=== PATIENT | female | born 1945 | race Two or more races ===

== ENCOUNTER → 2024-07-31 | Outpatient (CLI) | payer BC ==
[2024-07-31 09:25] LABS: Urine Bacteria None Seen /hpf (None Seen)
[2024-07-31 10:01] LABS: Basophils # (auto) 0 10 ^3/uL (0-0.2); Basophils % (auto) 0.8 % (0.0-2.0); Eosinophils # (auto) 0.1 10 ^3/uL (0-0.8); Eosinophils % (auto) 2.1 % (0.0-7.0); Hematocrit 42.4 % (36.0-46.0); Lymphocytes # (auto) 1.5 10 ^3/uL (0.4-5.4); Lymphocytes % (auto) 34.5 % (10.0-50.0); Mean Corpuscular Hemoglobin 29.6 pg (28.0-32.0); Mean Corpuscular Volume 89.9 fL (80.0-100.0); Monocytes # (auto) 0.4 10 ^3/uL (0-1.3); Monocytes % (auto) 8.5 % (0.0-12.0); Neutrophils # (auto) 2.3 10 ^3/uL (1.6-8.6); Neutrophils % (auto) 54.1 % (37.0-80.0); Platelet Count (auto) 177 10^3/uL (140-450); Red Blood Cells 4.72 10^6/uL (4.0-5.20); Red Cell Distribution Width 13.1 % (11.8-14.3); White Blood Cell 4.2 10^3/uL (4.4-10.8)
[2024-07-31 10:14] LABS: Urine Blood 1+ /uL (Negative); Urine Clarity Clear (Clear); Urine Color Light-Yellow (Yellow); Urine Mucus FEW (None Seen); Urine Protein, UAD Negative (Negative); Urine Specific Gravity 1.019 (1.001-1.035); Urine Squamous Epithelial Cell FEW /hpf (<5); Urine Urobilinogen Normal (Negative); Urine WBC 4 /HPF (0-5); Urine pH 6.5 (5.0-9.0)
[2024-07-31 10:35] LABS: Alanine Aminotransferase 19 U/L (7-40); Albumin 4.6 g/dL (3.2-4.8); Alkaline Phosphatase 63 U/L (46-116); Anion Gap 6 (5-15); Aspartate Aminotransferase 23 U/L (13-40); BUN/Creatinine Ratio 13.8 (10.0-20.0); Blood Urea Nitrogen 13 mg/dL (9-23); Carbon Dioxide 29 mmol/L (20-31); Chloride 106 mmol/L (98-107); Glucose 106 mg/dL (74-106); Sodium 141 mmol/L (136-145); Total Protein 7.5 g/dL (5.7-8.2); Triglycerides 57 mg/dL (< 150)
[2024-07-31 10:36] LABS: Bilirubin, Total 0.4 mg/dL (0.2-1.0); Calcium 10.4 mg/dL (8.7-10.4); Cholesterol 218 mg/dL (< 200); HDL Cholesterol 81 mg/dL (40-59); LDL Cholesterol 129 mg/dL (< 100)
[2024-07-31 12:15] LABS: Folate (Folic Acid) 18.21 ng/mL (>5.38)
== END | disposition home or self-care (01) ==
LOC: LAB 09:14
PROVIDERS: ATTEND Internal Medicine
DX: F03.90 Unspecified dementia, unspecified severity, without behavioral disturbance, psychotic disturbance, mood disturbance, and anxiety (principal); Z00.00 Encounter for general adult medical examination without abnormal findings
CPT/HCPCS: 36415; 80053; 80061; 81001; 82306; 82607; 82746; 83036; 84443; 85025; 86780

== ENCOUNTER 2024-11-27 11:29 | Outpatient (CLI) | payer BC | END 2024-11-27 17:00 | disposition home or self-care (01) | LOC: LAB 11:29 | PROVIDERS: ATTEND Internal Medicine | DX: E55.9 Vitamin D deficiency, unspecified (principal) | CPT/HCPCS: 82306 ==

== ENCOUNTER 2025-03-01 07:53 | Outpatient (CLI) | payer BC ==
[2025-03-01 08:57] LABS: Alanine Aminotransferase 12 U/L (7-40); Albumin 4.6 g/dL (3.2-4.8); Alkaline Phosphatase 57 U/L (46-116); Anion Gap 9 (5-15); BUN/Creatinine Ratio 12.2 (10.0-20.0); Blood Urea Nitrogen 12 mg/dL (9-23); Calcium 9.7 mg/dL (8.7-10.4); Carbon Dioxide 29 mmol/L (20-31); Chloride 105 mmol/L (98-107); Glucose 97 mg/dL (74-106); Potassium 4.6 mmol/L (3.5-5.1); Sodium 143 mmol/L (136-145); Total Protein 7.6 g/dL (5.7-8.2); Triglycerides 73 mg/dL (< 150)
[2025-03-01 08:58] LABS: Bilirubin, Total 0.5 mg/dL (0.2-1.0)
[2025-03-01 09:00] LABS: Cholesterol 208 mg/dL (< 200); HDL Cholesterol 68 mg/dL (40-59)
== END 2025-03-01 17:00 | disposition home or self-care (01) ==
LOC: LAB 07:53
PROVIDERS: ATTEND Internal Medicine
DX: I10 Essential (primary) hypertension (principal); E78.5 Hyperlipidemia, unspecified
CPT/HCPCS: 36415; 80053; 80061

== ENCOUNTER 2025-03-27 13:25 | Emergency (ER) | payer BC ==
[~2025-03-27] VITALS: Ht 167.6 cm; Wt 53.5 kg
[2025-03-27] MEDS: SODIUM CHLORIDE 0.9% 1,000 ML IV ONE (15:00)
--- NOTE | 2025-03-27 15:05 | ED.PDOC ---
HPI (NEURO) HPI Comments 79 y/o F, with PMHx of dementia is brought in by daughter for CC of weakness. Per patient's daughter, patient has been c/o weakness and being unable to ambulate sudden onset, this morning (03/27/25). Patient's daughter further reports, patients blood pressure was hypotensive at home reading at 95/61mmHg; patient's blood pressure upon arrival to the ED read at 111/77mmHg. Patient stating that she just felt a global weakness. No focal weakness on 1 side of body versus the other. No recent infectious symptoms. Patient denies any trauma, injury, fall, faintness, or dizziness. No other symptoms or modifying factors are present at this time. 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 Family History Family History: Unknown Social History Smoker: Non-Smoker Alcohol: Denies ETOH Use Drugs: Denies Drug Use Lives In: Home Constitutional: reports: weakness; denies: chills, diaphoresis, fatigue, fever, malaise, sweats, others EENTM: denies: blurred vision, double vision, ear bleeding, ear discharge, ear drainage, ear pain, ear ringing, eye pain, eye redness, hearing loss, mouth pain, mouth swelling, nasal discharge, nose bleeding, nose congestion, nose pain, photophobia, tearing, throat pain, throat swelling, voice changes, others Respiratory: denies: cough, hemoptysis, orthopnea, SOB at rest, shortness of breath, SOB with excertion, stridor, wheezing, others Cardiovascular: denies: chest pain, dizzy spells, diaphoresis, Dyspnea on exertion, edema, irregular heart beat, left arm pain, lightheadedness, palpitations, PND, syncope, others Gastrointestinal: denies: abdomen distended, abdominal pain, blood streaked bowels, constipated, diarrhea, dysphagia, difficulty swallowing, hematemesis, melena, nausea, poor appetite, poor fluid intake, rectal bleeding, rectal pain, vomiting, others Genitourinary: denies: abnormal vagina bleeding, burning, dyspareunia, dysuria, flank pain, frequency, hematuria, incontinence, pain, , vagina discharge, urgency, others Neurological: denies: dizziness, fainting, headache, left sided numbness, left sided weakness, numbness, paresthesia, pre-existing deficit, right sided numbness, right sided weakness, seizure, speech problems, tingling, tremors, weakness, others Musculoskeletal: denies: back pain, gout, joint pain, joint swelling, muscle pain, muscle stiffness, neck pain, others Integumetry: denies: bruises, change in color, change in hair/nails, dryness, laceration, lesions, lumps, rash, wounds, others Allergic/Immunocompromised: denies: Difficulty Healing, Frequent Infections, Hives, Itching, others Hematologic/Lymphatic: denies: anemia, blood clots, easy bleeding, easy bruising, swollen glands, others Endocrine: denies: excessive hunger, excessive sweating, excessive thirst, excessive urination, flushing, intolerance to cold, intolerance to heat, unexplained weight gain, unexplained weight loss, others Psychiatric: denies: anxiety, bipolar disorder, depression, hopeless, panic disorder, schizophrenia, sleepless, suicidal, others All Other Systems: Reviewed and Negative Physical Exam General Appearance: Normal HEENT: Normal ENT Inspection, Pharynx Normal, TMs Normal Neck: Full Range of Motion, Non-Tender, Normal, Normal Inspection Respiratory: Chest Non-Tender, Lungs Clear, No Accessory Muscle Use, No Respiratory Distress, Normal Breath Sounds Cardiovascular: No Edema, No JVD, No Murmur, No Gallop, Normal Peripheral Pulses, Regular Rate/Rhythm Breast Exam: Deferred Gastrointestinal: No Organomegaly, Non Tender, No Pulsatile Mass, Normal Bowel Sounds, Soft Genitalia: Deferred Pelvic: Deferred Rectal: Deferred Extremities: No calf tenderness, Normal capillary refill, Normal inspection, Normal range of motion, Non-tender, No pedal edema Musculoskeletal : Apperance: Normal Neurologic: Alert, chart picker II-XII nml as Tested, No Motor Deficits, Normal Affect, Normal Mood, No Sensory Deficits Cerebellar Function: Normal Reflexes: Normal, NOT DONE Skin: Dry, Normal Color, Warm Lymphatic: No Adenopathy Was a procedure done? Was a procedure done?: No Differential Diagnosis (SZ) General Weakness: Anemia, Dehydration, Electrolyte imbalance, Hypoglycemia, Hypotension X-Ray, Labs, Meds, VS Vital Signs Date Time Temp Pulse Resp B/P (MAP) Pulse Ox O2 Delivery O2 Flow Rate FiO2 03/27/25 18:08 98.0 89 16 143/83 (103) 99 98.0 03/27/25 15:30 98.2 84 18 112/67 (82) 97 98.2 03/27/25 13:41 76 03/27/25 13:31 98.0 81 18 111/77 99 98.0 Lab Test 03/27/25 15:25 03/27/25 14:47 03/27/25 13:46 Range/Units White Blood Count 12.2 H 4.4-10.8 10^3/uL Red Blood Count 4.58 4.0-5.20 10^6/uL Hemoglobin 13.6 12.2-16.2 g/dL Hematocrit 41.6 36.0-46.0 % Mean Corpuscular Volume 90.8 80.0-100.0 fL Mean Corpuscular Hemoglobin 29.7 28.0-32.0 pg Mean Corpuscular Hemoglobin Concent 32.7 32.0-36.0 g/dL Red Cell Distribution Width 12.7 11.8-14.3 % Platelet Count 204 140-450 10^3/uL Mean Platelet Volume 7.2 6.9-10.8 fL Neutrophils (%) (Auto) 86.1 H 37.0-80.0 % Lymphocytes (%) (Auto) 9.5 L 10.0-50.0 % Monocytes (%) (Auto) 3.9 0.0-12.0 % Eosinophils (%) (Auto) 0.3 0.0-7.0 % Basophils (%) (Auto) 0.2 0.0-2.0 % Neutrophils # (Auto) 10.5 H 1.6-8.6 10 ^3/uL Lymphocytes # (Auto) 1.2 0.4-5.4 10 ^3/uL Monocytes # (Auto) 0.5 0-1.3 10 ^3/uL Eosinophils # (Auto) 0 0-0.8 10 ^3/uL Basophils # (Auto) 0 0-0.2 10 ^3/uL Nucleated Red Blood Cells 0.0 % Sodium Level 140 136-145 mmol/L Potassium Level 4.2 3.5-5.1 mmol/L Chloride Level 102 98-107 mmol/L Carbon Dioxide Level 27 20-31 mmol/L Anion Gap 11 5-15 Blood Urea Nitrogen 13 9-23 mg/dL Creatinine 0.95 0.550-1.02 mg/dL Glomerular Filtration Rate Calc 60 >90 mL/min BUN/Creatinine Ratio 13.7 10.0-20.0 Serum Glucose 126 H 74-106 mg/dL Calcium Level 9.6 8.7-10.4 mg/dL Urine Color Yellow Yellow Urine Clarity Clear Clear Urine pH 5.5 5.0-9.0 Urine Specific [place] 1.028 1.001-1.035 Urine Protein Trace H Negative Urine Ketones Trace Negative Urine Blood Negative Negative /uL Urine Nitrite Negative Negative Urine Bilirubin Negative Negative Urine Urobilinogen Normal Negative mg/dL Urine Leukocyte Esterase 2+ Negative /uL Urine RBC 3 0 - 4 /hpf Urine Microscopic WBC 7 H 0-5 /HPF Urine Squamous Epithelial Cells Few <5 /hpf Urine Bacteria None seen None Seen /hpf Urine Mucus Few None Seen Urine Glucose Normal Normal mg/dL POC Glucose 63 L 70-106 mg/dl Current Medications Medications (Trade) Dose Ordered Sig/Tyra Route Start Time Stop Time Status Last Admin Sodium Chloride 1,000 ml @ 1,000 mls/hr Q1H ONCE IV 03/27/25 15:00 03/27/25 15:59 DC 03/27/25 15:00 [place] [address] Ph: [phone] DIAGNOSTIC IMAGING Diagnostic Imaging Report : [id number] Signed PATIENT: AMOR HALL LACCT: [id number] UNIT: [id number] : 1945 LOC: ER ROOM / BED: / AGE / SEX: 79 / F ADM STATUS: REG ER SERVICE [id number] ORDERING PHYSICIAN: VANNESSA CORNEJO MD PROCEDURE(s): CXR1 - CHEST XRAY 1 VIEW REASON: weakness ORDER NUMBER(s): [id number], ACCESSION NUMBER(s): [id number] CHEST RADIOGRAPH Indication: weakness Technique: Single frontal view of the chest was obtained Comparison: None FINDINGS: Lines and Tubes: Dual-chamber pacemaker in place with pulse generator over the right chest. Lungs: No focal consolidation. Pleura: No effusion. No pneumothorax. Cardiomediastinal contours: Unremarkable Bones: No acute osseous abnormality. IMPRESSION: 1. No prior studies for comparison 2. Dual-chamber pacemaker in place with pulse generator over the right chest ATED BY: JERAD BRICE Jr., DO DICTATED DATE/TIME: 03/27/251549 SIGNED BY: JERAD BRICE Jr., SIGNED DATE/TIME: 03/27/251549 CC: Time of 1ST Reevaluation: 15:20 Reevaluation 1ST: Unchanged Time of 2ND Reevaluation: 18:35 Reevaluation 2ND: Improved Patient Education/Counseling: Diagnosis, Treatment Family Education/Counseling: Diagnosis, Treatment Departure 1 Departure Time of Disposition: 18:35 (79-year-old female who came in for global weakness which occurred shortly before arrival. Initial fingerstick glucose is in the 60s which could be contributing to the patient's symptoms of weakness. However, despite this does have baseline mental status. Not reporting any focal weakness on 1 side of the body versus the other. Does not warrant any CT imaging of the head as I do not suspect any acute intracranial process, CVA. Patient with no recent infectious symptoms. However, given the age a screening chest x-ray was performed which shows no evidence of focal consolidation to suggest pneumonia. No evidence of acute cardiopulmonary process. Patient with no specific urinary symptoms, however, urinalysis was obtained which does not seem consistent with UTI. CBC with no evidence of critical leukocytosis or significant anemia. Metabolic panel shows improvement of hypoglycemia in comparison to the fingerstick taken upon arrival. No evidence of any acute electrolyte abnormalities. Patient was treated for symptom with 1 L normal saline IV fluid bolus in case there was a component of dehydration. Remained hemodynamically stable during the time that she was in the emergency department. Upon reassessment feeling significantly improved. Family members stating that she is at her current mental baseline. Stable for discharge home with family.) Impression: Primary Impression: Generalized weakness Disposition: 01 HOME / SELF CARE / HOMELESS Condition: Stable Additional Instructions: Your blood glucose was slightly low when you first arrived. However, it was normal in your metabolic panel. The remainder of your labs were within normal limits. Your urinalysis shows no signs of urinary tract infection. Your chest x-ray is within normal limits. They are to feel weak again tried to drink some juice or something with sugar in it to see if this improves your symptoms. Discharged With: Self Critical Care Note Critical Care Time?: No Stability Stability form required: No Heart Score Heart Score: Heart Score Response (Comments) Value History N/A 0 EKG N/A 0 Age N/A 0 Risk Factors N/A 0 Troponin N/A 0 Total 0 I personally scribed for VANNESSA CORNEJO MD ([email or web address]) on 03/27/25 at 15:05. Electronically submitted by Mala Kumar ([employer]). I personally scribed for VANNESSA CORNEJO MD ([email or web address]) on 03/27/25 at 16:09. Electronically submitted by Mala Kumar ([employer]). VANNESSA CORNEJO MD Mar 27, 2025 15:05
[2025-03-27 15:53] LABS: Urine Protein, UAD TRACE (Negative)
--- NOTE | 2025-03-27 15:53 | DVH ---
CHEST RADIOGRAPH Indication: weakness Technique: Single frontal view of the chest was obtained Comparison: None FINDINGS: Lines and Tubes: Dual-chamber pacemaker in place with pulse generator over the right chest. Lungs: No focal consolidation. Pleura: No effusion. No pneumothorax. Cardiomediastinal contours: Unremarkable Bones: No acute osseous abnormality. IMPRESSION: 1. No prior studies for comparison 2. Dual-chamber pacemaker in place with pulse generator over the right chest
[2025-03-27 15:56] LABS: Hematocrit 41.6 % (36.0-46.0); Hemoglobin 13.6 g/dL (12.2-16.2); Mean Corpuscular Hemoglobin 29.7 pg (28.0-32.0); Mean Corpuscular Volume 90.8 fL (80.0-100.0); Nucleated Red Blood Cells % 0.0 %
[2025-03-27 15:57] LABS: Chloride 102 mmol/L (98-107); Potassium 4.2 mmol/L (3.5-5.1); Sodium 140 mmol/L (136-145)
[2025-03-27 15:58] LABS: Anion Gap 11 (5-15); Carbon Dioxide 27 mmol/L (20-31)
[2025-03-27 15:59] LABS: Calcium 9.6 mg/dL (8.7-10.4)
[2025-03-27 16:04] LABS: BUN/Creatinine Ratio 13.7 (10.0-20.0); Blood Urea Nitrogen 13 mg/dL (9-23); Glucose 126 mg/dL (74-106)
[2025-03-27 18:08] VITALS: BP 143/83; PULSE 89; RESP 16; TEMP 98; O2SAT 99
--- NOTE | 2025-03-28 10:03 | ECG ---
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
== END 2025-03-27 19:33 | disposition home or self-care (01) ==
LOC: ER 13:25
DX: R53.1 Weakness (principal); F03.90 Unspecified dementia, unspecified severity, without behavioral disturbance, psychotic disturbance, mood disturbance, and anxiety
CPT/HCPCS: 36415; 71045; 80048; 81001; 82947; 85025; 93005; 96360; 99285; J7030; 82962

== ENCOUNTER 2025-04-18 08:56 | Day surgery (SDC) | payer BC ==
[2025-04-17 11:23] LABS: Hematocrit 42.8 % (36.0-46.0); Hemoglobin 14.1 g/dL (12.2-16.2); Mean Corpuscular Hemoglobin 29.7 pg (28.0-32.0); Mean Corpuscular Volume 89.9 fL (80.0-100.0); Nucleated Red Blood Cells % 0.0 %
[2025-04-17 11:38] LABS: INR 1.06 (0.9-1.15); Partial Thromboplastin Time 26.3 SEC (24.5-34.5); Prothrombin Time 11.2 sec (9.3-11.8)
[2025-04-17 12:24] LABS: Alanine Aminotransferase 17 U/L (7-40); Albumin 4.6 g/dL (3.2-4.8); Alkaline Phosphatase 68 U/L (46-116); Anion Gap 11 (5-15); BUN/Creatinine Ratio 18.0 (10.0-20.0); Blood Urea Nitrogen 18 mg/dL (9-23); Calcium 9.7 mg/dL (8.7-10.4); Carbon Dioxide 30 mmol/L (20-31); Chloride 104 mmol/L (98-107); Potassium 4.1 mmol/L (3.5-5.1); Sodium 145 mmol/L (136-145); Total Protein 7.9 g/dL (5.7-8.2)
[2025-04-17 12:46] LABS: Bilirubin, Total 0.3 mg/dL (0.2-1.0); Glucose 125 mg/dL (74-106)
[~2025-04-18 08:56] MED LIST: CYAN100042 PO; DONE5TAB80 PO; MIRT-93 PO
[2025-04-18] MEDS: VANCOMYCIN HCL 1000 MG VL ONE (12:16)
[2025-04-18] MEDS: MIDAZOLAM HCL 2MG/2ML 2ml VIAL (1mg/ml) ONE (12:16)
[2025-04-18] MEDS: fentaNYL CITRATE 100 MCG/2 ML VL ONE (12:16)
[2025-04-18] MEDS: LIDOCAINE 2%HCL (LOCAL ANESTH.) INJ 20ML MDV ONE (12:17)
[2025-04-18] MEDS: VANCOMYCIN 1GM/250ML KIT 250 ML IV ONE (12:17)
[2025-04-18 13:37] VITALS: BP 138/76; PULSE 64; RESP 15; O2SAT 97
--- NOTE | 2025-04-18 13:41 | DVHOP2 ---
Operative Report - 2 Report Details Date: 04/18/25 Preop Diagnosis: Sick sinus syndrome Postop Diagnosis: Sick sinus syndrome Surgeon: Chelsie Karimi MD Anesthesiologist: Conscious sedation Anesthesia: Mac, Local Consent: The patient was informed of the risks and benefits of the procedure. These include but are not limited to complications of anesthesia, postoperative infection, incomplete relief of symptoms, recurrence of symptoms, damage to blood vessels, nerves and tendons, deep venous thrombosis, pulmonary embolism and possible need for repeat surgery in the future. Complications: No complications Findings: Sick sinus syndrome Indications for Surgery: Pacemaker at [facility]ERRI Name of Procedure Performed Pacemaker generator change out Procedure Details Procedure Details: Prior local anesthesia with 2% lidocaine to the right subclavian and pectoral area, full informed consent obtained, the patient was prepped and draped in usual fashion followed by an incision of the right pectoral area and dissection planes with the electrocautery and blunt dissection and explantation of the existing generator. After liberating the leads we placed in the generator and flushed the pocket with antibiotic solution. We closed the pocket with 3-0 Monocryl and closed the skin with 4-0 Vicryl. Patient tolerated the procedure well there were no complications. Adequate capture and sensitivity thresholds were obtained. The new generator placed is a [employer] accolade MRI DDR IS-one serial number [id number]. Existing leads delineating the threshold in the right atrium at 4.2 mV at 0.7 volts at 0.4 milliseconds. An impedance of 562 Ohms and a current of 1.2 milliamps The right ventricular measured data showed an intrinsic 16.5 mV R-wave with a threshold at 2.8 volts at 0.4 milliseconds and 844 Ohms of impedance with a current of 3.3 milliamps. The mode is DDD TR with an RA output at 0.75 mV auto output at 0.4 milliseconds bipolar configuration and sensing and pacing The RV output with a sensitivity of 2.5 mV auto output at 0.4 milliseconds with bipolar configuration in both sensing and pacing. The AV delay is at 180 milliseconds PVARP at 240 milliseconds. The explanted device is a [employer] L3-1 one serial number [id number]. Patient tolerated the procedure well there were no complications Recommendations patient will be followed up as an outpatient within the next 2-3 weeks. Condition Good Disposition Home Date of Service: Apr 18, 2025 Billing Provider: CHELSIE KARIMI Sr., MD Cardiology Common Codes: [id number] INP/OBS CARE (High) (Pacemaker generator change) Card. Pacer Implants/Gen [id number]/Replace TTVPM/PACER CHELSIE KARIMI Sr., MD Apr 18, 2025 13:41
[2025-04-18 14:00] VITALS: BP 147/83; PULSE 78; RESP 12; O2SAT 98
[2025-04-18 14:15] VITALS: BP 131/60; PULSE 65; RESP 13; O2SAT 99
[2025-04-18 14:30] VITALS: BP 134/59; PULSE 70; RESP 16; O2SAT 100
[2025-04-18 14:45] VITALS: BP 138/62; PULSE 76; RESP 15; O2SAT 100
[2025-04-18 15:00] VITALS: BP 136/55; PULSE 74; RESP 16; O2SAT 100
== END 2025-04-18 15:05 | disposition home or self-care (01) ==
LOC: CATH 08:56
PROVIDERS: ATTEND Internal Medicine
DX: Z45.010 Encounter for checking and testing of cardiac pacemaker pulse generator [battery] (principal); I49.5 Sick sinus syndrome; Z79.899 Other long term (current) drug therapy; Z87.891 Personal history of nicotine dependence; Z82.49 Family history of ischemic heart disease and other diseases of the circulatory system
CPT/HCPCS: 33228; 36415; 80053; 85025; 85610; 85730; C1785; J2250; J3010; J3373; J7030; 99152

== ENCOUNTER 2025-04-20 05:32 | Emergency (ER) | payer BC ==
[~2025-04-20] VITALS: Ht 167.6 cm; Wt 54.8 kg
--- NOTE | 2025-04-20 06:49 | ED.PDOC ---
HPI (NEURO) HPI Comments 79-year-old female presents here with head injury. Son found her this morning in the shower with her pants on uneven. He believes that she may have lost balance and tripped and fell into the shower based upon her positioning. However this was not witnessed fall. Patient does not recall if she lost consciousness. Patient has no recollection of the fall. She does note that she has a lump on her head. Patient denies any headache neck pain. Denies any back pain. 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 No laceration) Neck: Full Range of Motion, Non-Tender, Normal, Normal Inspection Respiratory: Chest Non-Tender, Lungs Clear, No Accessory Muscle Use, No Respiratory Distress, Normal Breath Sounds Cardiovascular: No Edema, No JVD, No Murmur, No Gallop, Normal Peripheral Pulses, Regular Rate/Rhythm Breast Exam: Deferred Gastrointestinal: No Organomegaly, Non Tender, No Pulsatile Mass, Normal Bowel Sounds, Soft Genitalia: Deferred Pelvic: Deferred Rectal: Deferred Extremities: No calf tenderness, Normal capillary refill, Normal inspection, Normal range of motion, Non-tender, No pedal edema Musculoskeletal : Apperance: Normal Neurologic: Alert, No Motor Deficits, Normal Affect, Normal Mood, Other (Patient believes were in 2023 it as May. She has knows we are in the hospital. She continues to state she has a lump to her left scalp.) Cerebellar Function: Normal Reflexes: Normal Skin: Dry, Normal Color, Warm Lymphatic: No Adenopathy EKG EKG : Comments Rate of 79 sinus rhythm LVH with strain. Borderline QT prolongation of 499. Was a procedure done? Was a procedure done?: No Differential Diagnosis (SZ) Seizure: N/A CVA: Other Headache: Closed Head Injury, Intracerebral Hemorrhage, Subarachnoid Hemorrhage, Subdural Hemorrhage, N/A X-Ray, Labs, Meds, VS Vital Signs Date Time Temp Pulse Resp B/P (MAP) Pulse Ox O2 Delivery O2 Flow Rate FiO2 04/20/25 08:01 98.2 82 17 132/79 (96) 98 98.2 04/20/25 05:41 97.6 88 20 146/97 97 97.6 Lab Test 04/20/25 09:07 04/20/25 08:58 04/20/25 07:54 04/20/25 05:52 Range/Units Urine Color Light-yellow Yellow Urine Clarity Clear Clear Urine pH 5.5 5.0-9.0 Urine Specific [place] 1.017 1.001-1.035 Urine Protein Negative Negative Urine Ketones Negative Negative Urine Blood Trace H Negative /uL Urine Nitrite Negative Negative Urine Bilirubin Negative Negative Urine Urobilinogen Normal Negative mg/dL Urine Leukocyte Esterase Trace Negative /uL Urine RBC 2 0 - 4 /hpf Urine Microscopic WBC 2 0-5 /HPF Urine Squamous Epithelial Cells None seen <5 /hpf Urine Bacteria None seen None Seen /hpf Urine Mucus Few None Seen Urine Glucose Trace Normal mg/dL Troponin I High Sensitivity 30 31 </=34 ng/L White Blood Count 8.5 4.4-10.8 10^3/uL Red Blood Count 4.52 4.0-5.20 10^6/uL Hemoglobin 13.3 12.2-16.2 g/dL Hematocrit 40.7 36.0-46.0 % Mean Corpuscular Volume 89.9 80.0-100.0 fL Mean Corpuscular Hemoglobin 29.4 28.0-32.0 pg Mean Corpuscular Hemoglobin Concent 32.7 32.0-36.0 g/dL Red Cell Distribution Width 12.8 11.8-14.3 % Platelet Count 253 140-450 10^3/uL Mean Platelet Volume 6.8 L 6.9-10.8 fL Neutrophils (%) (Auto) 80.0 37.0-80.0 % Lymphocytes (%) (Auto) 13.6 10.0-50.0 % Monocytes (%) (Auto) 5.5 0.0-12.0 % Eosinophils (%) (Auto) 0.5 0.0-7.0 % Basophils (%) (Auto) 0.4 0.0-2.0 % Neutrophils # (Auto) 6.8 1.6-8.6 10 ^3/uL Lymphocytes # (Auto) 1.2 0.4-5.4 10 ^3/uL Monocytes # (Auto) 0.5 0-1.3 10 ^3/uL Eosinophils # (Auto) 0 0-0.8 10 ^3/uL Basophils # (Auto) 0 0-0.2 10 ^3/uL Nucleated Red Blood Cells 0.1 % Sodium Level 139 # 136-145 mmol/L Potassium Level 4.4 3.5-5.1 mmol/L Chloride Level 103 98-107 mmol/L Carbon Dioxide Level 27 20-31 mmol/L Anion Gap 9 5-15 Blood Urea Nitrogen 9 9-23 mg/dL Creatinine 0.88 0.550-1.02 mg/dL Glomerular Filtration Rate Calc 66 >90 mL/min BUN/Creatinine Ratio 10.2 10.0-20.0 Serum Glucose 153 H 74-106 mg/dL Calcium Level 9.2 8.7-10.4 mg/dL POC Glucose 100 70-106 mg/dl [place] [address] Ph: [phone] DIAGNOSTIC IMAGING Diagnostic Imaging Report : [id number] Signed PATIENT: AMOR HALL LACCT: [id number] UNIT: [id number] : 1945 LOC: ER ROOM / BED: / AGE / SEX: 79 / F ADM STATUS: REG ER SERVICE [id number] ORDERING PHYSICIAN: BISI LONDON MD PROCEDURE(s): HWOCT - HEAD WITHOUT CONTRAST REASON: ro ICH ORDER NUMBER(s): [id number], ACCESSION NUMBER(s): [id number] CLINICAL INFORMATION: Rule out intracranial hemorrhage. No other clinical information provided. TECHNIQUE: Axial imaging was obtained through the brain without contrast. Coronal and sagittal reformatted images were obtained, reviewed, and stored. Images were reviewed in brain and bone windows. All CT scans at this medical facility are performed using dose modulation techniques as appropriate to a performed exam including the following: Automated exposure control was utilized; adjustment of the MA and/or KV according to patient size; and use of iterative reconstruction technique. CTDIvol = 52.68 mGy DLP = 932.97 mGy-cm COMPARISON: CT HEAD WITHOUT CONTRAST on DOS: 07/11/24 FINDINGS: There is no acute intracranial hemorrhage. No mass effect or midline shift. Scattered areas of hypoattenuation are seen in the periventricular and subcortical white matter, which are nonspecific but most likely sequelae of small vessel ischemic disease. Atrophic changes with dilation of the ventricles and widening of the sulci. Basal cisterns are patent. The calvarium is unremarkable. Mild mucosal thickening of the paranasal sinuses. Mastoid air cells are clear. IMPRESSION: 1. No CT evidence of acute intracranial abnormality. 2. Nonacute findings as described above. ATED BY: JOE UGARTE DO DICTATED DATE/TIME: 04/20/25743 SIGNED BY: JOE UGARTE DO SIGNED DATE/TIME: 04/20/25743 CC: 79-year-old female presents here status post hematoma to left scalp. Patient is not on any blood thinner. The exact cause of her injuries unclear. Unclear if this was mechanical fall or presyncopal episode. At this time a CBC, BMP, EKG, troponin ordered including a CT scan of the brain. Patient has a nontender CT and L-spine. Doubt acute injury. Family is at bedside. CBC BMP within normal limits. Urinalysis was trace amount of blood but patient does not report any dysuria. Troponin is negative. CT scan of the head is also negative for acute intracranial hemorrhage. EKG with evidence of LVH with strain and borderline prolonged QT. However no evidence of acute arrhythmia, no evidence of block. Advised family to follow up with Cardiology. At this time son is at bedside comfortable taking the patient home. Patient is not on blood thinners. At the time of discharge to home. Advised to follow up with the PCP in 2-3 days and return to ER if symptoms worsen or persist. Time of 1ST Reevaluation: 07:12 Reevaluation 1ST: Unchanged Patient Education/Counseling: Diagnosis, Treatment Family Education/Counseling: No Family Present Departure 1 Departure Time of Disposition: 08:00 Impression: Primary Impression: Hematoma of scalp Qualified Codes: S00.03XA - Contusion of scalp, initial encounter Additional Impression: Unsteady gait Disposition: 01 HOME / SELF CARE / HOMELESS Condition: Fair Discharged With: Self Critical Care Note Critical Care Time?: No Stability Stability form required: No Heart Score Heart Score: Heart Score Response (Comments) Value History N/A 0 EKG N/A 0 Age N/A 0 Risk Factors N/A 0 Troponin N/A 0 Total 0 BISI LONDON MD Apr 20, 2025 06:49
--- NOTE | 2025-04-20 07:47 | DVH ---
CLINICAL INFORMATION: Rule out intracranial hemorrhage. No other clinical information provided. TECHNIQUE: Axial imaging was obtained through the brain without contrast. Coronal and sagittal reformatted images were obtained, reviewed, and stored. Images were reviewed in brain and bone windows. All CT scans at this medical facility are performed using dose modulation techniques as appropriate to a performed exam including the following: Automated exposure control was utilized; adjustment of the MA and/or KV according to patient size; and use of iterative reconstruction technique. CTDIvol = 52.68 mGy DLP = 932.97 mGy-cm COMPARISON: CT HEAD WITHOUT CONTRAST on DOS: 07/11/24 FINDINGS: There is no acute intracranial hemorrhage. No mass effect or midline shift. Scattered areas of hypoattenuation are seen in the periventricular and subcortical white matter, which are nonspecific but most likely sequelae of small vessel ischemic disease. Atrophic changes with dilation of the ventricles and widening of the sulci. Basal cisterns are patent. The calvarium is unremarkable. Mild mucosal thickening of the paranasal sinuses. Mastoid air cells are clear. IMPRESSION: 1. No CT evidence of acute intracranial abnormality. 2. Nonacute findings as described above.
[2025-04-20 08:20] LABS: Chloride 103 mmol/L (98-107); Hematocrit 40.7 % (36.0-46.0); Hemoglobin 13.3 g/dL (12.2-16.2); Mean Corpuscular Hemoglobin 29.4 pg (28.0-32.0); Mean Corpuscular Volume 89.9 fL (80.0-100.0); Nucleated Red Blood Cells % 0.1 %; Potassium 4.4 mmol/L (3.5-5.1); Sodium 139 mmol/L (136-145)
[2025-04-20 08:21] LABS: Anion Gap 9 (5-15); Calcium 9.2 mg/dL (8.7-10.4); Carbon Dioxide 27 mmol/L (20-31)
[2025-04-20 08:26] LABS: BUN/Creatinine Ratio 10.2 (10.0-20.0); Blood Urea Nitrogen 9 mg/dL (9-23)
[2025-04-20 08:31] LABS: Glucose 153 mg/dL (74-106)
[2025-04-20 09:32] LABS: Urine Protein, UAD Negative (Negative)
[2025-04-20 10:23] VITALS: BP 134/86; PULSE 87; RESP 18; TEMP 97.8; O2SAT 98
--- NOTE | 2025-04-23 06:38 | ECG ---
[facility] Test Date: 2025-04-20 Test Time: 09:59:00 Pat Name: AMOR HALL Department: Room: Gender: F Escort Patients: RICK : 1945 Requested By: BISI LONDON Order Number: [id number] Reading MD: Denny Karimi Measurements Intervals [place] Rate: 79 P: 54 [place]: 161 QRS: 47 QRSD: 84 T: 253 QT: 435 QTc: 499 Interpretive Statements Sinus rhythm LVH with secondary repolarization abnormality Borderline prolonged QT interval Electronically Signed On 04-26-2025 18:56:21 PST by Denny Karimi Please click the below link to view image of tracing.
== END 2025-04-20 10:25 | disposition home or self-care (01) ==
LOC: ER 05:32
DX: S00.03XA Contusion of scalp, initial encounter (principal); R26.81 Unsteadiness on feet; F03.90 Unspecified dementia, unspecified severity, without behavioral disturbance, psychotic disturbance, mood disturbance, and anxiety; W01.0XXA Fall on same level from slipping, tripping and stumbling without subsequent striking against object, initial encounter; Y93.89 Activity, other specified; Y92.89 Other specified places as the place of occurrence of the external cause; Y99.8 Other external cause status
CPT/HCPCS: 36415; 70450; 80048; 81001; 82947; 82962; 84484; 85025; 93005